=== PATIENT | male | born 1995 | race Caucasian/White ===

== ENCOUNTER 2018-01-01 16:13 | Emergency (ER) | payer SELFPAY ==
--- NOTE | 2018-01-01 16:19 | PDOC ---
Rapid Medical Evaluation Chief Complaint: Nasal Bleeding Time Seen by Provider: 01/01/18 16:17 Medical Evaluation: 01/01/18 16:18 The patient presents with a chief complaint of: nosebleeds I have performed a brief in-person evaluation of this patient. Pertinent physical exam findings: vss, no distress I have ordered the following: cbc, coags The patient will proceed to the ED for further evaluation. 01/01/18 16:20
[2018-01-01 16:34] VITALS: BP 131/69; PULSE 80; TEMP 99.2; BMI 27.4
--- NOTE | 2018-01-01 17:15 | PDOC ---
History of Present Illness - General Chief Complaint: Nasal Bleeding Stated Complaint: NASAL BLEEDING Time Seen by Provider: 01/01/18 16:17 History Source: Patient Exam Limitations: No Limitations - History of Present Illness Initial Comments: 01/01/18 17:50 Patient is a 22-year-old male, denies any significant medical history currently on no medication. Patient reports having intermittent nosebleeds for 1 week. Does not have bleeding today, denies any pain, no headache, no dizziness, no fever, no difficulty breathing. Patient reports that his mother made him come to the emergency department as they had family history of head malignancies. Patient with no pain, no bleeding, no symptoms upon arrival. Past Medical History: Denies. Allergies: No known allergies Medications: None Family History: Non-contributory Social History: Denies smoking, alcohol use, or IVDU Vital signs on arrival are notable for pulse of 96. Review of Systems GENERAL/CONSTITUTIONAL: No fever or chills. No weakness. No weight change. HEAD, EYES, EARS, NOSE AND THROAT: No change in vision. No ear pain or discharge. No sore throat. Intermittent epistaxis CARDIOVASCULAR: No chest pain or shortness of breath. RESPIRATORY: No cough, wheezing, or hemoptysis. GASTROINTESTINAL: No nausea, vomiting, diarrhea or constipation. No rectal bleeding. GENITOURINARY: No dysuria, frequency, or change in urination. MUSCULOSKELETAL: No joint or muscle swelling or pain. No neck or back pain. SKIN AND BREASTS: No rash or easy bruising. NEUROLOGIC: No headache, vertigo, loss of consciousness, or loss of sensation. PSYCHIATRIC: No depression or anxiety. ENDOCRINE: No increased thirst. No abnormal weight change. HEMATOLOGIC/LYMPHATIC: No anemia, easy bleeding, or history of blood clots. ALLERGIC/IMMUNOLOGIC: No hives or skin allergy. No latex allergy. Physical Exam: GENERAL: The patient is awake, alert, and fully oriented, in no acute distress. HEAD: Normal with no signs of trauma. EYES: Pupils equal, round and reactive to light, extraocular movements intact, sclera anicteric, conjunctiva clear. ENT: Ears normal, nares patent with no evidence of bleeding, no erythema or edema, no sinus tenderness,, oropharynx clear without exudates. Moist mucous membranes. No uvula deviation NECK: Normal range of motion, supple without lymphadenopathy, JVD, or masses. LUNGS: Breath sounds equal, clear to auscultation bilaterally. No wheezes, and no crackles. HEART: Regular rate and rhythm, normal S1 and S2 without murmur, rub or gallop. ABDOMEN: Soft, nontender, normoactive bowel sounds. No guarding, no rebound. No masses. No bruising or abrasions RECTAL : Guaiac negative, normal rectal tone. MUSCULOSKELETAL: Normal range of motion, no edema. No clubbing or cyanosis. No cords, erythema, or tenderness. No CVA Tenderness with fist. NEUROLOGICAL: Cranial nerves II through XII grossly intact. Normal speech, normal gait. PSYCH: Normal mood, normal affect. SKIN: Warm, Dry, normal turgor, no rashes or lesions noted. Past History - Past Medical History Allergies/Adverse Reactions: Allergies Allergy/AdvReac Type Severity Reaction Status Date / Time No Known Allergies Allergy Verified 01/01/18 16:20 Home Medications: Ambulatory Orders Oxymetazoline HCl [Afrin] 2 spray NS BID #1 spray 01/01/18 Sodium Chloride [Saline Nasal Mist] 126 ml NS HS #1 mist 01/01/18 COPD: No - Suicide/Smoking/Psychosocial Hx Smoking History: Never smoked Have you smoked in the past 12 months: No Information on smoking cessation initiated: No Hx Alcohol Use: No Drug/Substance Use Hx: No Substance Use Type: Marijuana *Physical Exam - Vital Signs Last Vital Signs Temp Pulse Resp BP Pulse Ox 99.2 F 80 18 131/69 100 01/01/18 16:17 01/01/18 16:17 01/01/18 16:17 01/01/18 16:17 01/01/18 16:17 Medical Decision Making - Medical Decision Making 01/01/18 17:58 A/P: Patient with intermittent nasal bleeding, no bleeding noted upon arrival and examination there is unremarkable no bleeding noted in nares. There is no swelling, no sinus tenderness, no hypertension, no dizziness, no visual disturbance, no pain. Given patient information to follow-up with ENT for further evaluation of concern, Afrin if bleeding starts no more than 3 days. If uncontrolled bleeding return to ER. With no clinical evidence of infection, malignancy or bleeding. *DC/Admit/Observation/Transfer Diagnosis at time of Disposition: Epistaxis not due to trauma - Discharge Dispostion Disposition: HOME Condition at time of disposition: Stable Admit: No - Prescriptions Prescriptions: Oxymetazoline HCl [Afrin] 2 spray NS BID #1 spray Sodium Chloride [Saline Nasal Mist] 126 ml NS HS #1 mist - Referrals Referrals: Delroy Fernandes MD [Staff Physician] - Slava Sheets MD [Staff Physician] - - Patient Instructions Printed Discharge Instructions: Nosebleeds (Alternative Therapy) Additional Instructions: If active nasal bleeding apply pressure return to ER. Recommend follow-up with ear nose and throat doctor If bleeding, use Afrin twice a day not to exceed 3 days Recommend cool air humidifier when sleeping Nasal saline prior to sleep - Post Discharge Activity Forms/Work/School Notes: Back to Work
== END 2018-01-01 17:18 | disposition home or self-care (01) ==
LOC: JERFT 16:13
DX: R04.0 Epistaxis (principal)
CPT/HCPCS: 99281-25